=== PATIENT | female | born 1985 | race Caucasian/White ===

== ENCOUNTER 2016-06-07 16:41 | Emergency (ER) | payer OTHER ==
[2016-06-07] MEDS ORDERED: ASPIRIN 81 MG TAB.CHEW PO ONE (16:54)
[2016-06-07] MEDS ORDERED: ASPIRIN 81 MG TAB.CHEW ONE (17:09)
[2016-06-07 17:11] LABS: Hematocrit 36.9 % (37.0-47.0); Hemoglobin 11.8 gm/dL (12.5-16.0); Mean Corpuscular Hemoglobin 27.2 pg (27-31); Mean Platelet Volume 8.3 fl (6.0-9.5); Neutrophil # 3.1 K/mm3 (1.3-6.0); Neutrophil % 54.1 % (42-75.0); Platelet Count 333 K/mm3 (150-450); Red Blood Count 4.34 M/mm3 (4.2-5.4); Red Cell Distribution Width 13.6 % (11.5-14.0); White Blood Count 5.8 K/mm3 (4.0-10.5)
--- OUTSIDE RECORDS SUMMARY | 2016-06-07 17:14 | XMS REPORT | Continuity of Care Document ---
:1985 Author Organization [facility] ([facility]) Address [place] [address] Phone [phone] Care Team Providers Name Role Phone Provider, No-Primary Care Primary Care Provider Unavailable Source Comments This disclosure is being made pursuant to the Care Everywhere program, applicable federal and state laws, and may not contain all informaitonavailable regarding this patient.[facility] ([facility]) Active Allergies and Adverse Reactions No Known Allergies Current Medications Prescription Sig. Disp. Refills Start Date End Date Status VIT Active CALC,IRON,FOLIC ( VITAMIN PO) methylergonovine Take 1 tablet (0.2 8 tablet 0 03/28/2016 Active (METHERGINE) 0.2 mg mg total) by mouth tablet every 6 hours. oxyCODONE-acetaminophe Take 1-2 tablets 35 tablet 0 03/28/2016 Active n (PERCOCET) 5-325 mg by mouth every 4 per tablet hours as needed. Do NOT exceed 4000 mg of acetaminophen per 24 hours. ibuprofen 600 mg Take 1 tablet (600 30 tablet 5 03/28/2016 Active tablet mg total) by mouth every 6 hours as needed. ALPRAZolam (XANAX) 1 1-2 tablets po 10 tablet 0 03/28/2016 Active mg tablet 45-60 min prior to procedure. And every 8 hours as needed for anxiety doxycycline hyclate Take 1 capsule 12 capsule 0 03/28/2016 Active 100 mg capsule (100 mg total) by mouth 2 times daily. zolpiDEM (AMBIEN) 5 mg Take 1 tablet (5 15 tablet 0 03/28/2016 Active tablet mg total) by mouth at bedtime as needed. Active Problems Problem Noted Date Tobacco use 03/28/2016 History latent TB, treated with 9month INH 03/26/2016 Severe oligohydramnios, antepartum 03/26/2016 Obesity 03/26/2016 History of delivery 03/26/2016 Currently Estimated Date of Delivery Comments Yes 07/22/2016 Based on Ultrasound Most Recent Encounters Date Type Specialty Providers Description 03/29/2016 Hospital Encounter Ambulatory Surgery Berta High MD 03/29/2016 Surgery Ambulatory Surgery Cailin Ashley Canceled D&E FOR MD Alonzo SPONTANEOUS OR MISSED / ETP 03/28/2016 Hospital Encounter Women's Health Chief Comp: Patient Reported Reason For Visit 03/28/2016 Office Visit Gynecology [place] Dx: S/P D&C (status Berta Méndez MD post dilation and curettage) (Primary Dx) 03/28/2016 Telephone Obstetrics Gianna Wang Chief Comp: Discuss L, CGC Test Results 03/28/2016 Orders/Notes Obstetrics Berta High MD 03/26/2016 Telephone Gynecology [place] Chief Comp: Berta Méndez MD Consultation 03/26/2016 Telephone Obstetrics [place] Chief Comp: Consult Berta Méndez MD With Local Provider 03/26/2016 Telephone Obstetrics Trudy, Chief Comp: Yuliana L Procedure 03/26/2016 Orders/Notes Obstetrics [place] Dx: Termination of Berta Méndez MD (Primary Dx) 03/26/2016 Orders/Notes Obstetrics [place] Dx: Termination of Berta Méndez MD (Primary Dx) 03/23/2016 Hospital Encounter Obstetrics Liliana Tejada Dx: Oligohydramnios, K antepartum 03/23/2016 Office Visit Maternal Liliana Tejada Dx: Oligohydramnios , Medicine K antepartum, second trimester, not applicable or unspecified fetus (Primary Dx) 03/23/2016 Office Visit Maternal Liliana Tejada Chief Comp: Patient Medicine K Reported Reason For Gianna Wang Visit L, CGC 03/23/2016 Telephone Obstetrics Rebecca Cheng Dx: Oligohydramnios, A, RN antepartum (Primary Dx) 03/22/2016 Hospital Encounter Obstetrics Tresa Hendricks A, Dx: Oligohydramnios, DO antepartum, second trimester, not applicable or unspecified fetus [O41.02X0] 03/22/2016 Office Visit Maternal Tresa Hendricks, Dx: History of Medicine DO delivery (Primary Dx) 03/22/2016 Office Visit Maternal Tresa Hendricks, Chief Comp: Patient Medicine DO Reported Reason For Visit 03/19/2016 Orders/Notes Maternal JosephVidal Dx: Oligohydramnios, Medicine MD Maci antepartum, second trimester, not applicable or unspecified fetus [O41.02X0] (Primary Dx) 03/19/2016 Telephone Maternal Tracy Joseph Vidal Chief Comp: Referral Medicine MD Maci Social History Tobacco Use Types Packs/Day Years Used Date Current Every Day Smoker 1 Smokeless Tobacco: Never Used Alcohol Use Drinks/Week oz/Week Comments No 0 Standard drinks or equivalent 0.0 Last Filed Vital Signs Vital Sign Reading Time Taken Blood Pressure 105/54 03/22/2016 8:53 AM HAZMAT TANKER DRIVER Pulse 76 03/22/2016 8:53 AM HAZMAT TANKER DRIVER Temperature 36.7 C (98.1 F) 03/22/2016 8:53 AM HAZMAT TANKER DRIVER Respiratory Rate 12 08/01/2015 1:51 PM CDT Height 1.675 m (5' 5.95") 03/22/2016 8:53 AM HAZMAT TANKER DRIVER Weight 102.5 kg (225 lb 15.5 oz) 03/22/2016 8:53 AM HAZMAT TANKER DRIVER Body Mass Index 36.53 03/22/2016 8:53 AM HAZMAT TANKER DRIVER Oxygen Saturation - - Plan of Care Health Maintenance Due Date Last Done Comments Hepatitis B Vaccine (1 of 3 - Primary Series) 1986 Tdap Vaccine 1997 Cervical Cancer Screening 2004 Lipid Disorder Screening 2004 MMR Vaccine 2004 Td Vaccine 2004 Varicella Vaccine (1 of 2 - Adult - No Evidence of 2004 Immunity) Pneumococcal Vaccine (1 of 1 - PPSV23) 2005 Influenza Vaccine: Seasonal (#1) 11/14/2015 Results from Last 3 Months SERVICE DESK TECHNICIAN/ DIAGNOSIS ULTRASOUND (03/23/2016 4:16 PM)Only the most recent of2 resultswithin the time period is included. Narrative Obstetric Ultrasound Report Limited Scan Ref[facility] from: [facility]. Nav [facility] [address] [place], [place] [id number] [place], [id number] OB Clinic IVF/ Endocrine PATIENT INFORMATION: Name: RAQUEL LEACH#: [id number] Age:30 y/oExam Date: 03/23/2016 :1985 Visit #: 2 LMP:Not Available Location: Diagnosis & Treatment Unit # Fetuses: 1 INDICATION:Oligohydramnios. ERLIN 2.5 cm. Suboptimal visualization. Declined screening. History of . Smoker. Obesity., KCL DATING: Assigned GA GA by LMPGA by US (FELICITA)FELICITA NA 22 5/7 wks 07/22/16 PRESENTATION/CORD/PLACENTA/FLUID/CERVIX: Presentation: Breech Placenta: Anterior, Left Amniotic Fluid: Subjective AF Volume: Markedly Decreased.Assessment: oligohydramnios. ANATOMICAL SURVEY: A full anatomical exam was previously performed. WARDROBE COORDINATOR FINDINGS: Ovaries:Left:Not Seen Right: Not Seen EFW Summary Table Exam DateFetus #EFW Percentile ------ - 24030 % AMNIOTIC FLUID VOLUME: OLIGOHYDRAMNIOS Subjective AF Volume: Markedly Decreased. PROCEDURES: The following maternal medications were given: local anesthesia.The following medications were given: KCl.Maternal blood type is Rh+. A successful cordocentesis was performed under ultrasound guidance and with the use of sterile techniqu, 2 mL of blood was removedand the blood was sent for karyotype. After the cordocentesis was performed, bradycardia was observed. The 22g needle was again confrmed to be in the umbilical vein and KCl 1.5 ml was injected. Laminar flow was noted in the portal vein. Cardiac activity ceased. The needle was withdrawn from the fetus. Repeat ultrasound was performed 20 minutes later to confirm absence of cardiac activity of the fetus. There were no complications.The procedure was performed by Dr. Vidal Ruiz MD ([id number]). COMMENTS: I attest to having personally viewed the images and my comments and impression are as follows: The exam was limited to assist with a cordocentesis. Cordocentesis was performed under direct ultrasound guidance and sterile technique. Resultspending. After the blood was obtained KCL was injected into the cord.No cardiac activity was noted post procedure or 20 min. Later. I discussed the ultrasound results with the patient as above. After relaying the results of the ultrasound to the patient, I spent an additional 30 minutes in face to face time with the patient of which more than 50% of that time was in counseling and/or coordination of care. The issues we discussed are as follows: CONSULTATION: Raquel Noyola is a 30 y.o. female with Estimated Date of Delivery: 07/22/16 and gestational age 22w5d.The is complicated by fetus with severe oligohydramnios, MVP 9 mm on her u/s with us on 03/22/16 .She has decided to terminate this after some discussion with her boyfriend, her consult yesterday and genetic counseling. She returns for a follow-up visit today for intracardiac KCl and genetic testing. IMPRESSION: 22w5d . Severe oligohydramnios DISCUSSION AND RECOMMENDATIONS: We briefly discussed the oligohydramnios and associated pulmonary hypoplasia. She understands and still desire the procedures today. She desire genetic testing on this fetus. We discussed that amniocentesis is the gold standard but due to oligohydramnios would be impossible. As she is planning termination, I offered cordocentesis to obtain blood for a karyotype. This may require a separate needle into the uterus in addition to the KCl injection into the heart. We discussed her decision to proceed with termination. She is planning a D&E. We discussed local anesthesia of the skin with 1% lidocaine and u/s guidance of a needle into the heart. KCl will be injected into the heart until cardiac activity ceases. We discussed the 2-3% risk of infection, labor, injury to surrounding organs associated with this procedure. She agreed to proceed and consent was signed. See the procedure note above. She tolerated it well. She returned 20 minutes after the procedure cardiac activity was confirmed to be absent. She will be contacted on Saturday03/26/16 for her termination procedure scheduling. She was instructed to call us with fever, abdominal pain, vaginal bleeding. Thank you for the opportunity to participate in the care of this patient. Please contact me if you have any questions. Staff Only Dr. Vidal Ruiz MD ([id number]) Rim Technician: Daisy Hendrix RDMS Procedure Note Amauri, Incoming Imaging Results - SatMar 23, 2016 4:55 PM HAZMAT TANKER DRIVER Obstetric Ultrasound Report Limited Scan Referral from: Dr. Nav Rico [facility] Department of Obstetrics &Gynecology [address] [place] [address] O [facility] [address] [place] [id number] [place], [place] [id number] OB Clinic IVF/ Endocrine PATIENT INFORMATION: Name: RAQUEL NOYOLA MR#: [id number] Age: 30 y/o Exam Date: 03/23/2016 : 1985 Visit #: 2 LMP: Not Available Location: Diagnosis & Treatment Unit # Fetuses: 1 INDICATION: Oligohydramnios. ERLIN 2.5 cm. Suboptimal visualization. Declined screening. History of . Smoker. Obesity., KCL DATING: Assigned GA GA by LMP GA by US (FELICITA) FELICITA NA 22 5/7 wks 07/22/16 PRESENTATION/CORD/PLACENTA/FLUID/CERVIX: Presentation: Breech Placenta: Anterior, Left Amniotic Fluid: Subjective AF Volume: Markedly Decreased. Assessment: oligohydramnios. ANATOMICAL SURVEY: A full anatomical exam was previously performed. WARDROBE COORDINATOR FINDINGS: Ovaries: Left: Not Seen Right: Not Seen EFW Summary Table Exam Date Fetus # EFW Percentile --------- ------- ---- 03/22/16 1 603 64 % AMNIOTIC FLUID VOLUME: OLIGOHYDRAMNIOS Subjective AF Volume: Markedly Decreased. PROCEDURES: The following maternal medications were given: local anesthesia. The following medications were given: KCl. Maternal blood type is Rh+. A successful cordocentesis was performed under ultrasound guidance and with the use of sterile techniqu, 2 mL of blood was removed and the blood was sent for karyotype. After the cordocentesis was performed, bradycardia was observed. The 22g needle was again confrmed to be in the umbilical vein and KCl 1.5 ml was injected. Laminar flow was noted in the portal vein. Cardiac activity ceased. The needle was withdrawn from the fetus. Repeat ultrasound was performed 20 minutes later to confirm absence of cardiac activity of the fetus. There were no complications. The procedure was performed by Dr. Vidal Ruiz MD ([id number]). COMMENTS: I attest to having personally viewed the images and my comments and impression are as follows: The exam was limited to assist with a cordocentesis. Cordocentesis was performed under direct ultrasound guidance andsterile technique. Results pending. After the blood was obtained KCL was injected into the cord. No cardiac activity was noted post procedureor 20 min. Later. I discussed the ultrasound results with the patient as above. After relaying the results of the ultrasound to the patient, I spent an additional 30 minutes in face to face time with the patient of which more than 50% of that time was in counseling and/or coordination of care. The issues we discussed are as follows: CONSULTATION: Raquel Noyola is a 30 y.o. female with Estimated Date of Delivery: 07/22/16 and gestational age 22w5d. The is complicated by fetus with severe oligohydramnios, MVP 9 mm on her u/s with us on 03/22/16 . She has decided to terminate this after some discussion with her boyfriend, her consult yesterday and genetic counseling. She returns for a follow-up visit today for intracardiacKCl and genetic testing. IMPRESSION: 22w5d . Severe oligohydramnios DISCUSSION AND RECOMMENDATIONS: We briefly discussed the oligohydramnios and associated pulmonary hypoplasia. She understands and still desire the procedures today. She desire genetic testing on this fetus. We discussed that amniocentesis is the gold standard but due to oligohydramnios would be impossible. As she is planning termination, I offered cordocentesis to obtain blood for a karyotype. This may require a separate needle into the uterus in addition to the KCl injection into the heart. We discussed her decision to proceed with termination. She is planning a D&E. We discussed local anesthesia of the skin with 1% lidocaine and u/s guidance of a needle into the heart. KCl will be injected intothe heart until cardiac activity ceases. We discussed the 2-3% risk of infection, labor, injury to surrounding organs associated with this procedure. She agreed to proceed and consent was signed. See the procedure note above. She tolerated it well. She returned 20 minutes after the procedure cardiac activity was confirmed to beabsent. She will be contacted on Saturday03/26/16 for her termination procedure scheduling. She was instructed to call us with fever, abdominal pain, vaginal bleeding. Thank you for the opportunity to participate in the care of this patient. Please contact me if you have any questions. Staff Only Dr. Vidal Ruiz MD ([id number]) Rim Technician: Daisy Hendrix RDMS CYTOGENETICS - CHROMOSOME STUDY (03/23/2016 4:08 PM) Component Value Range Case Report Cytogenetics Chromosome Analysis Case: [id number] Authorizing Provider:Vidal Ruiz MDCollected: 03/23/2016 04:08 PM Ordering Location: [facility]: Received: 03/23/2016 04:24 PM Ultrasound Pathologist: Andrew Tamayo MD Specimen:Blood Chromosome Final Result Normal Normal Preliminary Interpretation Patient Name: Fetus tina Noyola Specimen Type: Blood Physician: Dr. Ruiz Cytogenetics Lab No: [id number] Specimen No: [id number] Preliminary results are based on the analysis of ten cells, and appeared to be normal [46,XY]. No consistent numerical or structural abnormalities were detected. These results should be considered preliminary. Final Interpretation Comment Patient Name: TEE FETUS OF Physician:Dr. Vidal Ruiz Cytogenetics Lab No.: [id number] Specimen No.: [id number] Tissue Type:PERIPHERAL BLOOD Date Requested: 03/23/2016 Date of Visit:03/23/2016 Date Received in Lab: 03/23/2016 Date of Preliminary Report: 03/26/2016 Date of Final Report: 03/27/2016 Technologist(s):ROBERT No. of Cells Counted: 20 No. of Cells Analyzed:10 No. of Cells Imaged:20 No. of Cells Karyotyped:3 Modal Chromosome No.: 46 Band LevelK1 425 K2 450 Overall:400-475 No. of Clones:1 No. of Nonclonal Cells: 2 Indications:SEVERE OLIGOHYDRAMNIOS Cytogenetic Interpretations: 46,XY Lymphocytes from a peripheral blood specimen were stimulated with phytohemagglutinin, cultured for 72 to 96 hours and synchronized to obtain elongated chromosomes.Following arrest of cell division with colcemid, chromosomes were stained by the G-banding method.The chromosome number was determined by microscopic analysis and these cells were examined for the presence or absence of detectabl e structural rearrangements.Karyotypes were prepared from computer assisted digital images of these metaphases. These cells had a modal number of 46 chromosomes, including the X and Y chromosomes.No consistent structural or numerical abnormalities were detected.These results are consistent with the lata otype of a 46,XY male individual with an apparently normal banding pattern. Cells with other than 46 chromosomes appeared to be the result of random loss or gain. NOTE: The standard cytogenetic methodology utilized in this analysis does not routinely detect subtle rearrangements or low-level mosaicism. Also, it cannot detect molecular cytogenetic abnormalities, such as microdeletion and microduplication that may be detectable by chromosome microarray (COATING MIXER TENDER). These findings should be interpreted in conjunction with morphology and/or other ancillary studies. Professional component performed by Bela Foster, Ph.D., [facility], [address] [place] [address] (CLIA #: [id number]). Specimen Blood
[2016-06-07 17:27] LABS: Prothrombin Time (Patient) 10.6 Seconds (9.4-11.4)
[2016-06-07 17:29] LABS: INR 1.02 INR (0.90-1.10); Partial Thrombolplastin Time 27.1 Seconds (24-32)
--- NOTE | 2016-06-07 17:32 | ERNOTE ---
Chest Pain/Cardiac HPI Date of Service: 06/07/16 Chief Complaint: Chest Pain Time Seen by Provider: 06/07/16 16:54 Source: patient Exam Limitations: no limitations Immunizations: IMMUNIZATION HX Immunizations Up to Date Yes History of Influenza Vaccine Yes Hx Pneumococcal Vaccination More Information Required Allergies/Adverse Reactions: Allergies No Known Allergies Allergy (Verified 03/30/16 23:17) Home Medications: HOME MEDICATIONS Naproxen [Naprosyn] 500 mg PO BID PRN #20 tab 06/07/16 [Last Taken Unknown] Orphenadrine Citrate [Norflex] 100 mg PO Q12H #10 tablet.sa 06/07/16 [Last Taken Unknown] Narrative: Patient comes due to a L upper chest pain that has been coming on and off since last month. Patient with no nausea, no diaphoresis, no LOC, and no SOB. Timing: intermittent Severity/Quality: mild Location: left chest - upper part Chest Pain Radiation: no radiation Activities at Onset: none Modifying Factors - Improves: Present: nothing Modifying Factors - Worsens: Present: nothing Nitro Today/Relief: no nitro taken today Aspirin Treatment Today: no aspirin today Associated Symptoms: Absent: headache, dizziness, syncope, cough, shortness of breath, diaphoresis, fever/chills, palpitations, heartburn, nausea, vomiting, abdominal pain, weakness, back pain, swelling/lump in chest Prior Chest Pain/Cardiac Workup: Reports: non-cardiac Prior Treatment: Reports: recently seen - Patient has been assessed by PCP and no reason for her chest pain has been given to her. Patient reported that it was informed to her that she had an abnormal EKG. Review of Systems - Review of Systems Constitutional: Present: no symptoms reported EYE: Present: no symptoms reported ENT: Present: no symptoms reported Respiratory: Present: no symptoms reported Cardiology: Present: chest pain. Absent: palpitations, syncope, edema, claudication Gastrointestinal/Abdominal: Present: no symptoms reported Genitourinary: Present: no symptoms reported Musculoskeletal: Present: no symptoms reported Skin: Present: no symptoms reported Neurological: Present: no symptoms reported Endocrine: Present: no symptoms reported Hematologic/Lymphatic: Present: no symptoms reported Psych: Present: no symptoms reported All Other Systems: All systems neg except as marked - Patient's Past Medical History Patient History - Medical: No pertinent hx Patient History - Cardiac/Respiratory: No pertinent hx Patient History - Cancer: No Hx of Cancer Patient History - Surgical Procedures: Patient History - Other: None - Social History Living Situations: home Abuse History: No History of abuse Psych History: No pertinent hx Smoking Status: Former smoker Alcohol Use: none Drug Use: none - Immunizations Immunizations Up to Date: Yes Hx Pneumococcal Vaccination: More Information Required to Determine History of Influenza Vaccine: Yes Physical Exam - Physical Exam General Appearance: Present: wd/wn, alert, no apparent distress Eye Exam: Normal inspection: bilateral, PERRL: bilateral, EOMI: bilateral Ears, Nose, Throat: Present: normal ENT inspection, hearing grossly normal Neck: Present: normal inspection, nontender Respiratory: Present: no respiratory distress, normal breath sounds, no accessory muscle use, lungs clear, chest tenderness - Patient with reproduced tenderness on the L distal pectoralis muscle area Cardiovascular/Chest: Present: regular rate, rhythm, no murmur, normal peripheral pulses Gastrointestinal/Abdominal: Present: normal bowel sounds, nontender, soft. Absent: distended Back Exam: Present: normal inspection, normal range of motion, no CVA tenderness , no vertebral tenderness Extremity Exam: Present: normal inspection, non-tender, no edema, normal range of motion Neurological Exam: Present: alert, oriented, normal mood/affect, no motor/ sensory deficits Skin Exam: Present: normal color, warm/dry Lymphatic Exam: Present: no adenopathy ED Progress - Results and Orders Patient's Lab Results:: I have reviewed the patient's lab results. Results and Orders: CBC: Mild Anemia CMP: Normal Trop: Negative INR: Normal - Vital Signs Patient's Vital Signs:: I have reviewed the patient's vital signs. Vital Signs: Vital Signs 06/07/16 16:47 Temperature 36.1 C L Pulse Rate 76 Respiratory 16 Rate Blood Pressure 157/77 O2 Sat by Pulse 100 Oximetry - EKG EKG: NSR EKG read: Interp. by me EKG Comments: HR: 80, No change since 04/24/2016, No ST Elevation, I-RBBB - X-Ray X-Ray #1 X-Ray: chest Interpretation: Interp. by me X-ray Comments: No pneumothorax, no infiltrates, no consolidates, no congestive pattern - Progress/Reassessment Chief Complaint: Chest Pain Progress:: Improved - Transfer of Care Expected Disposition: Discharge Plan - Plan Plan: Patient is to follow up with her Primary Care Provider. Departure - Departure Clinical Impression: Chest wall pain Chest pain Qualifiers: Chest pain type: unspecified Qualified Code(s): R07.9 - Chest pain, unspecified Disposition: Home self-care Condition: Stable Instructions: Muscle Strain, [id number], Chest Wall Pain, [id number] Referrals: Brian Cee MD [Primary Care Provider] - Prescriptions: Naproxen [Naprosyn] 500 mg PO BID PRN #20 tab PRN Reason: Pain Orphenadrine Citrate [Norflex] 100 mg PO Q12H #10 tablet.sa
[2016-06-07 17:34] LABS: ALT 24 U/L (19-67); AST 13 U/L (0-48); Albumin * 3.7 gm/dl (3.4-5.0); Alkaline Phosphatase * 80 U/L (50-170); Anion Gap 16.2 mmol/L (6.8-13.8); BUN/Creatinine Ratio 15.4 (9.0-21.6); Bilirubin, Total 0.4 mg/dL (0.0-1.1); Blood Urea Nitrogen 14 mg/dL (3-23); Ca. Corrected For Albumin 8.6 mg/dL (8.4-10.2); Calcium * 8.7 mg/dL (7.9-10.9); Carbon Dioxide 24.5 mmol/L (24-32.6); Chloride 105 mmol/L (97-106); Glucose * 105 mg/dL (70-110); Potassium 3.7 mmol/L (3.4-4.6); Sodium 142 mmol/L (132-142); Total Protein 7.6 gm/dL (6.2-8.2); Troponin I Less than 0.017 ng/ml (0.00-0.10)
[2016-06-07 22:00] VITALS: BP 144/76
== END 2016-06-07 18:35 | disposition home or self-care (01) ==
LOC: ER 16:41
DX: R07.89 Other chest pain (principal); R07.9 Chest pain, unspecified; Z87.891 Personal history of nicotine dependence